=== PATIENT | female | born 1990 | race Caucasian/White ===

== ENCOUNTER 2017-01-19 00:25 | Emergency (ER) | payer OTHER ==
[~2017-01-19] VITALS: Ht 172.7 cm; Wt 67.0 kg
[~2017-01-19 00:25] MED LIST: LEXA10TA PO; PROM25TA5 PO
[2017-01-19 00:28] VITALS: BP 129/82; PULSE 92; RESP 16; TEMP 98.3; O2SAT 100
[2017-01-19] MEDS ORDERED: SODIUM CHLOR 0.9% 1000 ML INJ 1,000 ML IV ONE (01:48)
[2017-01-19] MEDS ORDERED: METOCLOPRAMIDE HCL 10 MG/2 ML VIAL IVP ONE (02:00)
[2017-01-19] MEDS ORDERED: SODIUM CHLORIDE 0.9% FLUSH 10 ML FLUSH IVF PRN (02:00)
[2017-01-19] MEDS ORDERED: diphenhydrAMINE HCL 50 MG/ML VIAL IVP ONE (02:00)
[2017-01-19 02:19] LABS: AUTOMATED NEUTROPHIL # 3.1 TH/MM3 (1.8-7.7); BASOPHIL % 0.7 % (0.0-2.0); EOSINOPHIL # 0.1 TH/MM3 (0-0.4); EOSINOPHIL % 2.2 % (0.0-4.0); HEMATOCRIT 37.6 % (35.0-46.0); HEMO FLAGS DIFF FINAL; LYMPH % 34.4 % (9.0-44.0); MEAN CELL VOLUME 85.6 FL (80.0-100.0); MEAN CORPUSCULAR HEMOGLOBIN 29.1 PG (27.0-34.0); MONO % 8.6 % (0.0-8.0); NEUT % 54.1 % (16.0-70.0); PLATELET COUNT 222 TH/MM3 (150-450); RED CELL DISTRIBUTION WIDTH 13.3 % (11.6-17.2); WHITE BLOOD COUNT 5.7 TH/MM3 (4.0-11.0)
[2017-01-19 02:21] VITALS: O2SAT 98
[2017-01-19 02:33] LABS: BICARBONATE 24.6 MEQ/L (21.0-32.0); POTASSIUM 3.5 MEQ/L (3.5-5.1)
--- NOTE | 2017-01-19 02:33 | PD ---
HPI Chief Complaint: Headache Time Seen by Provider: 01:47 Travel History International Travel<30 days: No Contact w/Intl Traveler<30days: No Traveled to known affect area: No History of Present Illness HPI 26-year-old female with history of migraine headaches, presents to the ER today because she states that she has had a few weeks' history of right sided headaches which improved with Advil. She states that in the past 2 days, her headache has been become worse, she feels like there is a lot of pressure in the posterior part of her right eye, and that she is having some lightheadedness and blurry vision. She states it just does not feel right. She denies any fevers, neck stiffness, vomiting, fevers, or any other symptoms. When asked to rate her headache, she states is not much of a pain, and rates it as 0 but states it feels more like a pressure. Modifying Factors: None Associated Signs & Symptoms: Pressure behind her right eye and right sided headaches Risk Factors: None PFSH Past Medical History Anxiety: Yes GERD: Yes Influenza Vaccination: No ?: Not LMP: 01/19/17 Past Surgical History Surgical History: No Previous Surgery Social History Alcohol Use: Yes Tobacco Use: No Substance Use: No Allergies-Medications (Allergen,Severity, Reaction): Coded Allergies: No Known Allergies (Verified , 01/19/17) Reported Meds & Prescriptions Reported Meds & Active Scripts Active Review of Systems Except as stated in HPI: all other systems reviewed are Neg Physical Exam Narrative GENERAL: Well-developed young female patient currently in mild distress. Awake and oriented 3. SKIN: Focused skin assessment warm/dry. HEAD: Atraumatic. Normocephalic. Mild right maxillary sinus area tenderness on palpation. EYES: Pupils equal and round. No scleral icterus. No injection or drainage. Extraocular movements are intact. ENT: No nasal bleeding or discharge. Mucous membranes pink and moist. NECK: Trachea midline. No JVD. CARDIOVASCULAR: Regular rate and rhythm. No murmur appreciated. RESPIRATORY: No accessory muscle use. Clear to auscultation. Breath sounds equal bilaterally. GASTROINTESTINAL: Abdomen soft, non-tender, nondistended. Hepatic and splenic margins not palpable. MUSCULOSKELETAL: No obvious deformities. No clubbing. No cyanosis. No edema. NEUROLOGICAL: Awake and alert. No obvious cranial nerve deficits. Motor grossly within normal limits. Normal speech. PSYCHIATRIC: Appropriate mood and affect; insight and judgment normal. Data Data Last Documented VS Vital Signs Date Time Temp Pulse Resp B/P Pulse Ox O2 Delivery O2 Flow Rate FiO2 01/19/17 02:21 98 Room Air 01/19/17 00:28 98.3 92 16 129/82 Orders Complete Blood Count With Diff (01/19/17 01:48) Basic Metabolic Panel (Bmp) (01/19/17 01:48) Ct Brain W/O Iv Contrast(Rout) (01/19/17 01:48) Ecg Monitoring (01/19/17 01:48) Iv Access Insert/Monitor (01/19/17 01:48) Oximetry (01/19/17 01:48) Sodium Chloride 0.9% Flush (Ns Flush) (01/19/17 02:00) Diphenhydramine Inj (Benadryl Inj) (01/19/17 02:00) Metoclopramide Inj (Reglan Inj) (01/19/17 02:00) Sodium Chlor 0.9% 1000 Ml Inj (Ns 1000 M (01/19/17 01:48) Ed Urine Pregnancytest Poc (01/19/17 01:48) Labs Laboratory Tests Test 01/19/17 02:05 White Blood Count 5.7 TH/MM3 Red Blood Count 4.40 MIL/MM3 Hemoglobin 12.8 GM/DL Hematocrit 37.6 % Mean Corpuscular Volume 85.6 FL Mean Corpuscular Hemoglobin 29.1 PG Mean Corpuscular Hemoglobin 34.0 % Concent Red Cell Distribution Width 13.3 % Platelet Count 222 TH/MM3 Mean Platelet Volume 9.5 FL Neutrophils (%) (Auto) 54.1 % Lymphocytes (%) (Auto) 34.4 % Monocytes (%) (Auto) 8.6 % Eosinophils (%) (Auto) 2.2 % Basophils (%) (Auto) 0.7 % Neutrophils # (Auto) 3.1 TH/MM3 Lymphocytes # (Auto) 2.0 TH/MM3 Monocytes # (Auto) 0.5 TH/MM3 Eosinophils # (Auto) 0.1 TH/MM3 Basophils # (Auto) 0.0 TH/MM3 CBC Comment DIFF FINAL Differential Comment Sodium Level 140 MEQ/L Potassium Level 3.5 MEQ/L Chloride Level 108 MEQ/L Carbon Dioxide Level 24.6 MEQ/L Anion Gap 7 MEQ/L Blood Urea Nitrogen 9 MG/DL Creatinine 0.98 MG/DL Estimat Glomerular Filtration 69 ML/MIN Rate Random Glucose 100 MG/DL Calcium Level 8.9 MG/DL [place] Medical Decision Making Medical Screen Exam Complete: Yes Emergency Medical Condition: Yes Medical Record Reviewed: Yes Interpretation(s) Laboratory Tests Test 01/19/17 02:05 Monocytes (%) (Auto) 8.6 % (0.0-8.0) Chloride Level 108 MEQ/L (98-107) Estimat Glomerular Filtration 69 ML/MIN (>89) Rate Differential Diagnosis Migraine headaches versus sinusitis versus temporal arteritis versus acute intercranial processes Narrative Course Lab work didn't indicate significant metabolic issues. CT of the brain is negative for any signs of acute processes. Patient has no focal neurological symptoms. She was given IV fluids, Reglan, and Benadryl in the ER. On reevaluation at 3:20 AM, she states her headache is gone away. At this point, my plan would be to give her further symptomatic relief and have her follow-up with primary care physician. Return for any worsening in symptoms as necessary. The plan has been discussed with her and she states understanding. Diagnosis Primary Impression: Migraine headache Med/Other Pt SpecificInfo: Prescription(s) given Scripts Metoclopramide (Reglan)10 Mg Tab10 Mg PO QID PRN (NAUSEA) #12 TAB Ref 0 Prov:Adeline Lin MD 01/19/17 Disposition: 01 DISCHARGE HOME Condition: Stable Adeline Lin MD January 19, 2017 02:33
--- NOTE | 2017-01-19 03:15 | RADRPT ---
EXAM DATE/TIME: 01/19/2017 03:07 [facility] COMPARISON: No previous studies available for comparison. INDICATIONS : Right sided cephalgia. RADIATION DOSE: 56.35 CTDIvol (mGy) MEDICAL HISTORY : Gastroesophageal reflux disease. SURGICAL HISTORY : None. ENCOUNTER: Initial ACUITY: 1 day PAIN SCALE: 3/10 LOCATION: cranial TECHNIQUE: Multiple contiguous axial images were obtained of the head. Using automated exposure control and adj ustment of the mA and/or kV according to patient size, radiation dose was kept as low as reasonably a chievable to obtain optimal diagnostic quality images. FINDINGS: CEREBRUM: The ventricles are normal for age. No evidence of midline shift, mass lesion, hemorrhage or acute in farction. No extra-axial fluid collections are seen. POSTERIOR FOSSA: The cerebellum and brainstem are intact. The 4th ventricle is midline. The cerebellopontine angle i s unremarkable. EXTRACRANIAL: The visualized portion of the orbits is intact. SKULL: The calvaria is intact. No evidence of skull fracture. CONCLUSION: 1. No evidence of acute intracranial pathology. No masses are identified. Maxi Andrew MD on January 19, 2017 at 3:12 Board Certified Radiologist. This report was verified electronically.
[2017-01-19] MEDS ORDERED: REGL10TA5 PO (03:22)
== END 2017-01-19 03:28 | disposition home or self-care (01) ==
LOC: NEPC 00:25
DX: G43.909 Migraine, unspecified, not intractable, without status migrainosus (principal); H53.8 Other visual disturbances; R42 Dizziness and giddiness
CPT/HCPCS: 70450; 80048; 84703; 85025; 96361; 96374; 96375; 99284; J1200; J2765; J7030

== ENCOUNTER 2017-01-21 01:12 | Emergency (ER) | payer OTHER ==
[~2017-01-21 01:12] MED LIST changes: -LEXA10TA PO; -PROM25TA5 PO; +REGL10TA5 PO
[2017-01-21 01:14] VITALS: BP 139/76; PULSE 104; RESP 18; TEMP 98.2; O2SAT 99
[2017-01-21] MEDS ORDERED: SODIUM CHLORIDE 0.9% FLUSH 10 ML FLUSH IVF PRN (01:45)
--- NOTE | 2017-01-21 01:48 | PD ---
HPI Chief Complaint: Cardiac Complaint Time Seen by Provider: 01:44 Travel History International Travel<30 days: No Contact w/Intl Traveler<30days: No Traveled to known affect area: No History of Present Illness HPI 26-year-old female with history of anxiety, here for evaluation of palpitations and chest discomfort. Symptoms started a couple hours ago and have been intermittent. The patient tried taking some of her Xanax without real improvement in symptoms. Discomfort is on her left side of her chest. She states that if she exerts herself she feels short of breath. She has been having some heavy vaginal bleeding over the past couple days. She was seen in the emergency department 2 days ago for a migraine headache and states that her head is feeling much better. No fevers or recent illness. No cough. No history of cardiopulmonary disease. PFSH Past Medical History Anxiety: Yes GERD: Yes Social History Alcohol Use: Yes Tobacco Use: No Substance Use: No Allergies-Medications (Allergen,Severity, Reaction): Coded Allergies: No Known Allergies (Verified , 01/21/17) Reported Meds & Prescriptions Reported Meds & Active Scripts Active Reglan (Metoclopramide HCl) 10 Mg Tab 10 Mg PO QID PRN Review of Systems Except as stated in HPI: all other systems reviewed are Neg Physical Exam Narrative GENERAL: Well-developed, well-nourished, comfortable, no acute distress. SKIN: Focused skin assessment warm/dry. HEAD: Atraumatic. Normocephalic. EYES: Pupils equal and round. No scleral icterus. No injection or drainage. ENT: Mucous membranes pink and moist. NECK: Trachea midline. No JVD. CARDIOVASCULAR: Regular rate and rhythm. RESPIRATORY: No accessory muscle use. Clear to auscultation. Breath sounds equal bilaterally. GASTROINTESTINAL: Abdomen soft, non-tender, nondistended. MUSCULOSKELETAL: No obvious deformities. No clubbing. No cyanosis. No edema. NEUROLOGICAL: Awake and alert. No obvious cranial nerve deficits. Motor grossly within normal limits. Normal speech. PSYCHIATRIC: Appropriate mood and affect; insight and judgment normal. Data Data Last Documented VS Vital Signs Date Time Temp Pulse Resp B/P Pulse Ox O2 Delivery O2 Flow Rate FiO2 01/21/17 02:30 84 18 100 01/21/17 02:30 Room Air 01/21/17 02:30 111/58 01/21/17 01:14 98.2 Orders Complete Blood Count With Diff (01/21/17 01:45) Basic Metabolic Panel (Bmp) (01/21/17 01:45) D-Dimer (01/21/17 01:45) Act Partial Throm Time (Ptt) (01/21/17 01:45) Prothrombin Time / Inr (Pt) (01/21/17 01:45) Ckmb (Isoenzyme) Profile (01/21/17 01:45) Troponin I (01/21/17 01:45) Iv Access Insert/Monitor (01/21/17 01:45) Electrocardiogram (01/21/17 01:45) Ecg Monitoring (01/21/17 01:45) Oximetry (01/21/17 01:45) Oxygen Administration (01/21/17 01:45) Chest, Single Ap (01/21/17 01:45) Sodium Chloride 0.9% Flush (Ns Flush) (01/21/17 01:45) Beta Hcg (Quant/Titer) (01/21/17 01:45) CKMB (01/21/17 01:59) CKMB% (01/21/17 01:59) Labs Laboratory Tests Test 01/21/17 01:59 White Blood Count 5.3 TH/MM3 Red Blood Count 4.38 MIL/MM3 Hemoglobin 12.9 GM/DL Hematocrit 37.4 % Mean Corpuscular Volume 85.4 FL Mean Corpuscular Hemoglobin 29.4 PG Mean Corpuscular Hemoglobin 34.4 % Concent Red Cell Distribution Width 13.1 % Platelet Count 213 TH/MM3 Mean Platelet Volume 9.6 FL Neutrophils (%) (Auto) 55.9 % Lymphocytes (%) (Auto) 31.0 % Monocytes (%) (Auto) 9.6 % Eosinophils (%) (Auto) 1.9 % Basophils (%) (Auto) 1.6 % Neutrophils # (Auto) 3.0 TH/MM3 Lymphocytes # (Auto) 1.7 TH/MM3 Monocytes # (Auto) 0.5 TH/MM3 Eosinophils # (Auto) 0.1 TH/MM3 Basophils # (Auto) 0.1 TH/MM3 CBC Comment DIFF FINAL Differential Comment Prothrombin Time 10.4 SEC Prothromb Time International 0.9 RATIO Ratio Activated Partial 28.0 SEC Thromboplast Time D-Dimer Quantitative (PE/DVT) 0.25 MG/L FEU Sodium Level 139 MEQ/L Potassium Level 3.9 MEQ/L Chloride Level 108 MEQ/L Carbon Dioxide Level 23.7 MEQ/L Anion Gap 7 MEQ/L Blood Urea Nitrogen 11 MG/DL Creatinine 0.94 MG/DL Estimat Glomerular Filtration 73 ML/MIN Rate Random Glucose 91 MG/DL Calcium Level 8.7 MG/DL Total Creatine Kinase 126 U/L Creatine Kinase MB 0.8 NG/ML Troponin I LESS THAN 0.02 NG/ML Human Chorionic Gonadotropin, LESS THAN 1 Quant MIU/ML MDM Medical Decision Making Medical Screen Exam Complete: Yes Emergency Medical Condition: Yes Medical Record Reviewed: Yes Interpretation(s) EKG: Sinus, rate 90, normal axis, normal intervals, no acute ischemic normality. Differential Diagnosis Palpitations, dysrhythmia, anemia, metabolic abnormality, PE, ACS unlikely Narrative Course Initial vital signs show heart rate of 104 which improved to 84 with no intervention, blood pressure 139/76, pulse ox 99% on room air, oral temp of 98.2 F. CBC is unremarkable. BMP is unremarkable. Beta hCG is negative. Cardiac enzymes are negative. D-dimer is negative at 0.25. Chest x-ray: No acute cardio pulmonary disease. Patient was made aware of all findings. Upon reassessment she is sleeping comfortably. At this point I believe she is stable for discharge home with outpatient follow-up with her primary care physician. She has an appointment with him tomorrow. She was informed on when to return to the emergency department. She verbalizes understanding and agreement with plan. Diagnosis Primary Impression: Palpitations Referrals: Primary Care Physician 1 day Additional Instructions: Follow-up with your primary care physician tomorrow as scheduled. Return to the emergency department for worsening symptoms or any other concerns. Disposition: 01 DISCHARGE HOME Condition: Stable Rahsaad Reid MD January 21, 2017 01:48
[2017-01-21 02:12] LABS: BASOPHIL # 0.1 TH/MM3 (0-0.2); BASOPHIL % 1.6 % (0.0-2.0); EOSINOPHIL # 0.1 TH/MM3 (0-0.4); EOSINOPHIL % 1.9 % (0.0-4.0); HEMATOCRIT 37.4 % (35.0-46.0); HEMO FLAGS DIFF FINAL; LYMPHOCYTE # 1.7 TH/MM3 (1.0-4.8); MEAN CELL VOLUME 85.4 FL (80.0-100.0); MEAN CORPUSCULAR HEMOGLOBIN 29.4 PG (27.0-34.0); MEAN CORPUSCULAR HGB CONC 34.4 % (32.0-36.0); MONO % 9.6 % (0.0-8.0); NEUT % 55.9 % (16.0-70.0); PLATELET COUNT 213 TH/MM3 (150-450); RED BLOOD COUNT 4.38 MIL/MM3 (4.00-5.30); RED CELL DISTRIBUTION WIDTH 13.1 % (11.6-17.2); WHITE BLOOD COUNT 5.3 TH/MM3 (4.0-11.0)
[2017-01-21 02:20] LABS: INTERNATIONAL NORMALIZED RATIO 0.9 RATIO; PROTHROMBIN TIME - PATIENT 10.4 SEC (9.8-11.6)
[2017-01-21 02:30] VITALS: BP 111/58; PULSE 84; RESP 18; O2SAT 100
[2017-01-21 02:47] LABS: BETA HCG QUANT LESS THAN 1 MIU/ML (0-5); CREATINE KINASE 126 U/L (26-192)
[2017-01-21 02:54] LABS: ANION GAP 7 MEQ/L (5-15); BICARBONATE 23.7 MEQ/L (21.0-32.0); BLOOD UREA NITROGEN 11 MG/DL (7-18); CHLORIDE 108 MEQ/L (98-107); GLOMERULAR FILTRATION RATE 73 ML/MIN (>89); POTASSIUM 3.9 MEQ/L (3.5-5.1); SODIUM (NA) 139 MEQ/L (136-145)
[2017-01-21 03:00] LABS: CKMB 0.8 NG/ML (0.5-3.6)
--- NOTE | 2017-01-21 03:01 | RADRPT ---
EXAM DATE/TIME: 01/21/2017 02:20 [facility] COMPARISON: No previous studies available for comparison. INDICATIONS : Shortness of breath. MEDICAL HISTORY : None. SURGICAL HISTORY : None. ENCOUNTER: Initial ACUITY: 1 day PAIN SCORE: 0/10 LOCATION: Bilateral chest FINDINGS: A single view of the chest demonstrates the lungs to be symmetrically aerated without evidence of mas s, infiltrate or effusion. The cardiomediastinal contours are unremarkable. Osseous structures are intact. CONCLUSION: 1. No acute cardiopulmonary disease. Maxi Andrew MD on January 21, 2017 at 2:59 Board Certified Radiologist. This report was verified electronically.
[2017-01-21 03:25] VITALS: BP 113/65; PULSE 87; RESP 18; TEMP 98.1; O2SAT 100
--- NOTE | 2017-01-21 08:34 | EKG ---
Date Performed: 01/21/2017 Time Performed: 01:49:13 PTAGE: 26 years EKG: Sinus rhythm NORMAL ECG NO PREVIOUS TRACING DOCTOR: Franky Weiss Interpretating Date/Time 01/21/2017 08:32:42
== END 2017-01-21 03:30 | disposition home or self-care (01) ==
LOC: NEPE 01:12
DX: R00.2 Palpitations (principal); R07.89 Other chest pain; R06.02 Shortness of breath
CPT/HCPCS: 71010; 80048; 82550; 82552; 84484; 84702; 85025; 85379; 85610; 85730; 93005